=== PATIENT | female | born 1950 | race Caucasian/White ===

== ENCOUNTER 2018-11-04 14:23 | Emergency (ER) | payer MEDICARE, OTHER ==
[~2018-11-04] VITALS: Ht 154.9 cm; Wt 67.1 kg
--- NOTE | 2018-11-04 14:23 | NUR ---
PT BIB [facility] FROM HOME,BECAME EMOTIONAL,DEVELOPED HEADACHE/CHEST PAIN. PT IS AAOX4, ARMANIAN SPEAKING, NOT IN RESPIRATORY DISTRESS, V/S STABLE, KEPT RESTED AND COMFORTABLE, HOOKED TO MONITOR.
--- NOTE | 2018-11-04 14:30 | NUR ---
SEEN AND EXAMINED BY DR. STREET.
--- NOTE | 2018-11-04 14:39 | NUR ---
PT LABS DRAWNED AND SENT TO LAB. AWAITING RESULTS.
[2018-11-04] MEDS ORDERED: NITROGLYCERIN PACKET 1 GM PACKET ONE (14:41)
[2018-11-04 14:47] LABS: BASOPHILS % (AUTO) 0.3 % (0.0-2.0); EOSINOPHILS % (AUTO) 0.6 % (0.0-6.0); HEMATOCRIT 40 % (33-45); HEMOGLOBIN 13.6 g/dL (11.5-14.8); LYMPHOCYTES # (AUTO) 1.4 /CMM (0.8-4.8); LYMPHOCYTES % (AUTO) 16.7 % (20.0-44.0); MEAN CORPUSCULAR HGB CONC 34 g/dl (31.0-36.0); MEAN CORPUSCULAR VOLUME 92 fL (82-100); MONOCYTES # (AUTO) 0.3 /CMM (0.1-1.30); MONOCYTES % (AUTO) 3.2 % (2.0-12.0); NEUTROPHILS # (AUTO) 6.5 /CMM (1.8-8.9); NEUTROPHILS % (AUTO) 79.2 % (43.0-81.0); PLATELET COUNT (AUTO) 250 /CMM (150-450); RED BLOOD CELL COUNT(AUTO) 4.35 MIL/uL (4.0-5.2); WHITE BLOOD COUNT (AUTO) 8.2 K/uL (4.3-11.0)
[2018-11-04 14:55] LABS: CALCIUM, SERUM 9.5 mg/dL (8.5-10.1); CARBON DIOXIDE 28 mmol/L (21-32); CHLORIDE 104 mmol/L (98-107); CREATININE 0.7 mg/dL (0.6-1.3); GLUCOSE 147 mg/dL (74-106); POTASSIUM 3.8 mmol/L (3.5-5.1); SODIUM SERUM 140 mmol/L (136-145); UREA NITROGEN, BLOOD 9 mg/dL (7-18)
[2018-11-04] MEDS ORDERED: ACETAMINOPHEN ES 500 MG TABLET ONE (14:55)
[2018-11-04] MEDS ORDERED: ACETAMINOPHEN ES 500 MG TABLET PO ONE (15:00)
[2018-11-04] MEDS ORDERED: NITROGLYCERIN PACKET 1 GM PACKET TD ONE (15:00)
[2018-11-04 15:05] LABS: ALANINE AMINOTRANSFERASE 30 U/L (12-78); ALBUMIN 4.2 g/dL (3.4-5.0); ALKALINE PHOSPHATASE 73 U/L (46-116); ASPARTATE AMINOTRANSFERASE 20 U/L (15-37); BILIRUBIN,DIRECT 0.1 mg/dL (0.0-0.2); BILIRUBIN,TOTAL 0.4 mg/dL (0.2-1.0)
[2018-11-04] MEDS ORDERED: GEMF600T5 PO (15:06)
[2018-11-04] MEDS ORDERED: TRAM50TA2 PO (15:06)
[2018-11-04] MEDS ORDERED: ENAL20TA PO (15:06)
[2018-11-04] MEDS ORDERED: AMLO10TA7 PO (15:06)
[2018-11-04] MEDS ORDERED: CLOP75TA15 PO (15:06)
[2018-11-04] MEDS ORDERED: GABA-534 PO (15:06)
--- NOTE | 2018-11-04 15:56 | NUR ---
RADIOLOGY AT BEDSIDE FOR XRAY.
[2018-11-04 16:06] VITALS: BP 134/79
--- NOTE | 2018-11-04 16:35 | NUR ---
IV removed. Catheter intact and site benign. Pressure and 4x4 applied to site. No bleeding noted. Patient discharged to home in stable condition. Written and verbal after care instructions given. Patient verbalizes understanding of instruction.
== END 2018-11-04 16:36 | disposition home or self-care (01) ==
LOC: ER 14:24
DX: R07.89 Other chest pain (principal); I51.9 Heart disease, unspecified; I10 Essential (primary) hypertension; E78.00 Pure hypercholesterolemia, unspecified
CPT/HCPCS: 36415; 71045; 80048; 80076; 84484; 85025; 85730; 87081; 93005 ×2; 99284; A4606

== ENCOUNTER 2019-04-05 15:29 | Emergency (ER) | payer MEDICARE, OTHER ==
[~2019-04-05] VITALS: Ht 154.9 cm; Wt 65.8 kg
[~2019-04-05 15:29] MED LIST: AMLO10TA7 PO; CLOP75TA15 PO; ENAL20TA PO; GABA-534 PO; GEMF600T5 PO; TRAM50TA2 PO
[2019-04-05 15:39] VITALS: BP 170/74
== END 2019-04-05 17:11 | disposition home or self-care (01) ==
LOC: ER 15:29
DX: J40 Bronchitis, not specified as acute or chronic (principal); J30.9 Allergic rhinitis, unspecified; I10 Essential (primary) hypertension
CPT/HCPCS: 71045-TC

== ENCOUNTER 2019-11-09 21:44 | Emergency (ER) | payer MEDICARE, OTHER ==
[~2019-11-09] VITALS: Ht 152.4 cm; Wt 66.7 kg
--- NOTE | 2019-11-09 21:55 | NUR ---
PT CAME INTO THE ED C/O HIGH BLOODPRESSURE 212/118 @HOME. TOOK ENALAPRIL 20MG PO @1830. RODARTE WITH SOB X1 DAY. PT AAOX4, NO ACUTE DISTRESS NOTED. 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
[2019-11-09] MEDS ORDERED: ONDANSETRON HCL/PF 4 MG/2 ML VIAL ONE (22:52)
[2019-11-09] MEDS ORDERED: MORPHINE SULFATE INJ 2 MG/ML DISP.SYRIN ONE (22:52)
[2019-11-09] MEDS ORDERED: MORPHINE SULFATE INJ 2 MG/ML DISP.SYRIN IV ONE (23:00)
[2019-11-09] MEDS ORDERED: ONDANSETRON HCL/PF 4 MG/2 ML VIAL IV ONE (23:00)
[2019-11-09 23:06] LABS: BASOPHILS # (AUTO) 0.1 /CMM (0.0-0.2); BASOPHILS % (AUTO) 0.7 % (0.0-2.0); EOSINOPHILS % (AUTO) 4.4 % (0.0-6.0); HEMATOCRIT 41 % (33-45); HEMOGLOBIN 13.6 g/dL (11.5-14.8); LYMPHOCYTES # (AUTO) 2.5 /CMM (0.8-4.8); LYMPHOCYTES % (AUTO) 35.3 % (20.0-44.0); MEAN CORPUSCULAR HGB CONC 34 g/dl (31.0-36.0); MEAN CORPUSCULAR VOLUME 91 fL (82-100); MONOCYTES # (AUTO) 0.5 /CMM (0.1-1.30); MONOCYTES % (AUTO) 6.9 % (2.0-12.0); NEUTROPHILS # (AUTO) 3.8 /CMM (1.8-8.9); NEUTROPHILS % (AUTO) 52.7 % (43.0-81.0); PLATELET COUNT (AUTO) 265 /CMM (150-450); RED BLOOD CELL COUNT(AUTO) 4.45 MIL/uL (4.0-5.2); WHITE BLOOD COUNT (AUTO) 7.2 K/uL (4.3-11.0)
[2019-11-09 23:19] LABS: CALCIUM, SERUM 9.5 mg/dL (8.5-10.1); CARBON DIOXIDE 28 mmol/L (21-32); CHLORIDE 105 mmol/L (98-107); CREATININE 0.9 mg/dL (0.6-1.3); GLUCOSE 118 mg/dL (74-106); POTASSIUM 3.9 mmol/L (3.5-5.1); SODIUM SERUM 141 mmol/L (136-145); UREA NITROGEN, BLOOD 14 mg/dL (7-18)
[2019-11-09 23:24] LABS: ALANINE AMINOTRANSFERASE 33 U/L (12-78); ALBUMIN 3.8 g/dL (3.4-5.0); ALKALINE PHOSPHATASE 90 U/L (46-116); ASPARTATE AMINOTRANSFERASE 20 U/L (15-37); BILIRUBIN,TOTAL 0.2 mg/dL (0.2-1.0); TOTAL PROTEIN, SERUM 7.6 g/dL (6.4-8.2)
[2019-11-10 00:17] VITALS: BP 136/79
--- NOTE | 2019-11-10 00:17 | NUR ---
Patient discharged to home in stable condition. Written and verbal after care instructions given. Patient verbalizes understanding of instruction.IV removed. Catheter intact and site benign. Pressure and 4x4 applied to site. No bleeding noted.
== END 2019-11-10 00:18 | disposition home or self-care (01) ==
LOC: ER 21:47
DX: I16.0 Hypertensive urgency (principal); Z79.899 Other long term (current) drug therapy
CPT/HCPCS: 36415; 70450; 71045; 80048; 80076; 82962; 84484; 85025; 85730; 93005; 96374; 96375; 99284; J2270; J2405

== ENCOUNTER 2021-01-15 17:36 | Emergency (ER) | payer MEDICARE, MEDICAID ==
[~2021-01-15] VITALS: Ht 152.4 cm; Wt 66.7 kg
[~2021-01-15 17:36] MED LIST changes: +AMLO-213 PO; -AMLO10TA7 PO; -ENAL20TA PO; +ENAL20TA18 PO; -GEMF600T5 PO; +GEMF600T90 PO
--- NOTE | 2021-01-15 18:15 | NUR ---
BIBS FROM HOME TO ER BED 4. AAOX4. NOT IN RESP DISTRESS. AMBULATORUY WITH A LIMP. CAME IN FOR L FOOT PAIN. UPON ASSESSMENT, PT WAS NOTED WITH SWELLING, REDNESS AND TENDER TO TOUCH ON HER L BUNION. PAIN IS RATED 5/10. MD WAS AT THE BEDSIDE FOR EVAL. ORDERS RECEIVED, NOTED AND CARRRIED OUT.
--- NOTE | 2021-01-15 18:30 | NUR ---
Patient discharged to home in stable condition. Written and verbal after care instructions given. Patient verbalizes understanding of instruction. Pt ambulatory with a steady gait
[2021-01-15 18:32] VITALS: BP 150/89
== END 2021-01-15 18:32 | disposition home or self-care (01) ==
LOC: ER 17:46
DX: M10.9 Gout, unspecified (principal); I10 Essential (primary) hypertension; Z79.899 Other long term (current) drug therapy
CPT/HCPCS: 73630-TC

== ENCOUNTER 2023-05-30 02:24 | Emergency (ER) | payer MEDICARE, OTHER ==
[~2023-05-30] VITALS: Ht 154.9 cm; Wt 59.9 kg
[2023-05-30 02:51] LABS: APPEARANCE,URINE CLEAR (CLEAR); BILIRUBIN,URINE NEGATIVE (NEGATIVE); BLOOD, URINE TRACE-INTA Ery/uL (NEGATIVE); COLOR,URINE YELLOW (YELLOW); KETONES,URINE NEGATIVE (NEGATIVE); LEUKOCYTE ESTERASE ,URINE 2+ (NEGATIVE); NITRITE, URINE NEGATIVE (NEGATIVE); PROTEIN,URINE NEGATIVE (NEGATIVE); UGLUCOSE NEGATIVE (NEGATIVE); UROBILINOGEN,URINE 0.2 EU/dL (0.2)
[2023-05-30 02:52] LABS: ADD URINE CULTURE YES; BACTERIA,URINE Rare /HPF (None Seen); RBC,URINE 0-2 /HPF (0-2); SQUAMOUS EPITHELIAL CELL,UR Few /HPF (None Seen)
[2023-05-30] MEDS ORDERED: NITR100C11 PO ×2 (03:21→03:42)
[2023-05-30] MEDS ORDERED: NITROFURANTOIN/MONOHYDRATE MACROCRYSTALS 100 MG CAPSULE ONE (03:29)
[2023-05-30] MEDS ORDERED: NITROFURANTOIN/MONOHYDRATE MACROCRYSTALS 100 MG CAPSULE PO ONE (03:30)
[2023-05-30] MEDS ORDERED: PHEN-704 PO ×2 (03:36→03:42)
[2023-05-30] MEDS ORDERED: PHENAZOPYRIDINE HCL 200 MG TABLET ONE (03:39)
[2023-05-30 03:46] VITALS: BP 120/89; TEMP 98; O2SAT 98
[2023-05-30] MEDS ORDERED: PHENAZOPYRIDINE HCL 200 MG TABLET PO ONE (04:00)
== END 2023-05-30 03:46 | disposition home or self-care (01) ==
LOC: ER 02:24
DX: N39.0 Urinary tract infection, site not specified (principal); R10.2 Pelvic and perineal pain; I10 Essential (primary) hypertension
CPT/HCPCS: 81001; 87086-TC

== ENCOUNTER 2023-06-07 11:08 | Emergency (ER) | payer MEDICARE, OTHER ==
[~2023-06-07] VITALS: Ht 154.9 cm; Wt 66.7 kg
[~2023-06-07 11:08] MED LIST changes: +NITR100C11 PO; +PHEN-704 PO
[2023-06-07] MEDS ORDERED: diphenhydrAMINE HCL 50 MG/ML VIAL IV ONE (12:00)
[2023-06-07] MEDS ORDERED: FAMOTIDINE/PF INJ 20 MG/2 ML VIAL IV ONE ×2 (12:00→12:43)
[2023-06-07] MEDS ORDERED: methylPREDNISolone SOD SUCC 125 MG/2ML VIAL IV ONE (12:00)
[2023-06-07] MEDS ORDERED: methylPREDNISolone SOD SUCC 125 MG/2ML VIAL ONE (12:42)
[2023-06-07] MEDS ORDERED: diphenhydrAMINE HCL 50 MG/ML VIAL ONE (12:42)
[2023-06-07] MEDS ORDERED: DIPH50CA4 PO (13:49)
[2023-06-07] MEDS ORDERED: PRED50TA PO (13:49)
[2023-06-07 13:55] VITALS: BP 165/103; TEMP 98.7; O2SAT 100
== END 2023-06-07 13:55 | disposition home or self-care (01) ==
LOC: ER 11:37
DX: L50.9 Urticaria, unspecified (principal); I10 Essential (primary) hypertension; E78.00 Pure hypercholesterolemia, unspecified
CPT/HCPCS: 99284; 96374; 96375; J1200; J3490; J2930